=== PATIENT | male | born 1980 | race African-American/Black ===

== ENCOUNTER 2023-08-10 09:46 | Emergency (ER) | payer MEDICAID ==
[~2023-08-10] VITALS: Ht 188 cm; Wt 68.0 kg
[2023-08-10 09:53] VITALS: O2SAT 100
[2023-08-10] MEDS ORDERED: KETOROLAC 30MG/ML VIAL IM NR (11:00)
[2023-08-10] MEDS ORDERED: IBUP-2030 MT (11:20)
[2023-08-10] MEDS ORDERED: HYDR-4001 MT (11:20)
[2023-08-10 11:57] VITALS: BP 155/98; PULSE 102; RESP 20; TEMP 98
== END 2023-08-10 12:20 | disposition home or self-care (01) ==
LOC: ER 09:46
DX: S42.302A Unspecified fracture of shaft of humerus, left arm, initial encounter for closed fracture (principal); Z88.9 Allergy status to unspecified drugs, medicaments and biological substances; Z98.890 Other specified postprocedural states; W01.0XXA Fall on same level from slipping, tripping and stumbling without subsequent striking against object, initial encounter; Y93.89 Activity, other specified; Y92.89 Other specified places as the place of occurrence of the external cause; Y99.8 Other external cause status
CPT/HCPCS: 73502; 73030; 29105; 96372; 99284; J1885; Z7610 ×3

== ENCOUNTER 2024-06-07 17:00 | Emergency (ER) | payer MEDICAID ==
[~2024-06-07] VITALS: Ht 182.9 cm; Wt 80.0 kg
[~2024-06-07 17:00] MED LIST: HYDR-4001 MT; IBUP-2030 MT
[2024-06-07 17:02] VITALS: BP 153/93; PULSE 126; RESP 18; TEMP 98.2; O2SAT 96
== END 2024-06-07 18:00 | disposition left against medical advice (07) ==
LOC: ER 17:09
DX: R07.9 Chest pain, unspecified (principal); Z53.21 Procedure and treatment not carried out due to patient leaving prior to being seen by health care provider

== ENCOUNTER 2024-07-11 13:20 | Emergency (ER) | payer MEDICAID ==
[~2024-07-11] VITALS: Ht 180.3 cm; Wt 65.0 kg
[2024-07-11 13:25] VITALS: BP 155/100; TEMP 98.5; O2SAT 96
[2024-07-11 14:41] LABS: EOSINOPHILS % 3.4 % (0.0-5.0); HEMATOCRIT. 37.5 % (42.0-52.0); HEMOGLOBIN. 12.4 g/dL (14.0-18.0); MEAN CORPUSCULAR HEMOGLOBIN 30.5 pg (28.0-32.0); MEAN CORPUSCULAR HGB CONC 33.1 g/dL (31.0-37.0); MEAN CORPUSCULAR VOLUME 92.2 fL (80.0-94.0); MEAN PLATELET VOLUME 8.7 fl (7.4-10.4); MONOCYTES % 11.2 % (2.0-8.0); NEUTROPHILS % 45.4 % (40.0-76.0); PLATELET 185 x1000/uL (130-400); RED BLOOD CELL COUNT 4.07 mill/uL (4.7-6.1); RED CELL DISTRIBUTION WIDTH 15.9 % (11.6-14.6); WHITE BLOOD COUNT 5.6 x1000/uL (4.5-11.0)
[2024-07-11 15:00] LABS: CHLORIDE 101 mEq/L (98-107); POTASSIUM 3.2 mEq/L (3.5-5.1); SODIUM 139 mEq/L (136-145)
[2024-07-11 15:01] LABS: CARBON DIOXIDE 28 mEq/L (21-32)
[2024-07-11 15:06] LABS: GLUCOSE 73 mg/dL (70-105)
[2024-07-11 15:07] LABS: UREA NITROGEN BLOOD 10 mg/dL (9-23)
[2024-07-11 17:36] VITALS: PULSE 101; RESP 18; O2SAT 100
== END 2024-07-11 17:35 | disposition home or self-care (01) ==
LOC: ER 13:20
DX: F10.129 Alcohol abuse with intoxication, unspecified (principal); M54.2 Cervicalgia; Z88.8 Allergy status to other drugs, medicaments and biological substances; Y90.9 Presence of alcohol in blood, level not specified
CPT/HCPCS: 36415; 80048; 85025; 99291